=== PATIENT | female | born 1950 | race Caucasian/White ===

== ENCOUNTER 2018-03-30 12:11 | Outpatient (CLI) | payer OTHER ==
[~2018-03-30 12:11] MED LIST: SUCCINYLCHOLINE CHLORIDE 200 MG/10 ML VIAL ONE
[2018-03-30] MEDS ORDERED: PROPOFOL 200 MG/20 ML VIAL ONE (12:44)
[2018-03-30] MEDS ORDERED: PROPOFOL/EMULSION 500 MG/50 ML BOTTLE IV ONE (12:45)
[2018-03-30] MEDS ORDERED: NS 500 ML IV PRN (15:52)
[2018-03-30] MEDS ORDERED: fentaNYL 100 MCG/2 ML INJ IVP PRN (15:52)
[2018-03-30] MEDS ORDERED: NALOXONE HCL 0.4 MG/ML INJ IVP PRN (15:52)
[2018-03-30] MEDS ORDERED: PROMETHAZINE HCL 25 MG/ML INJ IVP PRN (15:52)
[2018-03-30] MEDS ORDERED: DIAZEPAM 5 MG/ML 1 ML SYR IVP PRN (15:52)
[2018-03-30] MEDS ORDERED: DEXAMETHASONE 4 MG/ML VIAL IVP PRN (15:52)
[2018-03-30] MEDS ORDERED: ONDANSETRON 4 MG/2 ML VIAL IVP PRN (15:52)
--- NOTE | 2018-03-30 15:52 | PDANEPAE ---
ANE Past Medical History - Cardiovascular History Hx Hypertension: No Hx Arrhythmias: No Hx Chest Pain: No Hx Coronary Artery / Peripheral Vascular Disease: No Hx CHF / Valvular Disease: No Hx Palpitations: No - Pulmonary History Hx COPD: No Hx Asthma/Reactive Airway Disease: No Hx Recent Upper Respiratory Infection: No Hx Oxygen in Use at Home: No Hx Sleep Apnea: No Sleep Apnea Screening Result - Last Documented: Negative - Neurologic History Hx Cerebrovascular Accident: No Hx Seizures: No Hx Dementia: No - Endocrine History Hx Diabetes: No Endocrine History Comment: HYPOTHYROID - Renal History Hx Renal Disorders: Yes Renal History Comment: ACUTE KIDNEY FAILURE r/t NSAIDS - Liver History Hx Hepatic Disorders: No - Neurological & Psychiatric Hx Hx Neurological and Psychiatric Disorders: No - Cancer History Hx Cancer: Yes Cancer History Comment: SKIN CA. MOTHER BREAST CA. FATHER PROSTATE - Congenital Disorder History Hx Congenital Disorders: No - GI History Hx Gastrointestinal Disorders: Yes Gastrointestinal History Comment: MIRALAX FOR COLON. MOD HIATAL HERNIA - Other Health History Other Health History: pulmonary embolism R lung post op 2013. Auto Immune disease mostly joints/tendons. - Chronic Pain History Chronic Pain: Yes (Neck and T-spine) - Surgical History Prior Surgeries: TOTAL HYSTERECTOMY. PARTIAL COLECTOMY. L KNEE. IT BAND. ORIF L ANKLE. tendon transplant L elbow. Back surgery lumbar fusion 2013 ( post op pulm embolism R lung) ANE Review of Systems Review of Systems: - Exercise capacity METS (RN): 6 METS ANE Patient History - Allergies Allergies/Adverse Reactions: Iodinated Contrast- Oral and IV Dye [Iodinated Contrast Media - IV Dye] Allergy (Severe, Verified 03/30/18 13:28) Dyspnea enoxaparin sodium [From Lovenox] Allergy (Intermediate, Verified 03/30/18 13:28) rash/redness codeine Allergy (Mild, Verified 07/24/14 15:54) Vomiting - Home Medications Home medications: home medication list seen and reviewed Home Medications: Calcium Carbonate [CALTRATE 600] 1,200 mg PO DAILY 05/29/14 [Last Taken 03/29/18 ] Cholecalciferol Vit D3 [Vitamin D3 (*)] 5,000 units PO DAILY 05/29/14 [Last Taken 03/29/18] Levothyroxine [Synthroid 25 mcg (*)] 37.5 mcg PO DAILY06 05/29/14 [Last Taken 11 /15/18] Omeprazole 40 mg PO BID 05/29/14 [Last Taken 03/30/18] Polyethylene Glycol 3350 [Miralax 17 gm (*)] 17 gm PO BID 05/29/14 [Last Taken 03/29/18] predniSONE 5 mg PO DAILY 05/29/14 [Last Taken 03/30/18] Ranitidine HCl [Zantac 75] 75 mg PO BID PRN 07/22/14 [Last Taken 03/29/18] Estradiol Transdermal Patch 0.025 mg SC 03/30/18 [Last Taken 03/30/18 13:32] - NPO status NPO Status: no food or drink >8 hours - Anes Hx Anes Hx: no prior problems - Smoking Hx Smoking Status: Never smoked - Family Anes Hx Family Hx Anesthesia Complications: NEG ANE Labs/Vital Signs - Vital Signs Blood Pressure: 120/75 Heart Rate: 62 Respiratory Rate: 16 O2 Sat (%): 96 Height: 160.02 cm Weight: 55.338 kg ANE Physical Exam - Airway Neck exam: FROM Mallampati Score: Class 2 Mouth exam: normal dental/mouth exam - Pulmonary Pulmonary: no respiratory distress, no rales or rhonchi, clear to auscultation - Cardiovascular Cardiovascular: regular rate and rhythym, no murmur, rub, or gallop - ASA Status ASA Status: II ANE Anesthesia Plan Anesthesia Plan: GA w LMA
--- NOTE | 2018-03-30 17:24 | POSTANESTH ---
Post Anesthetic Evaluation Cardiovascular Status: Normal, Stable, Similar to Pre-Op Cond Respiratory Status: Normal, Stable, Similar to Pre-op Cond. Level of Consciousness/Mental Status: Can Participate in Eval, Alert and Oriented Pain Control: Adequate, Prn Tx Ordered Nausea/Vomiting Control: Adequate, Prn Tx Ordered Complications Possibly Related to Anesthesia: None Noted
[2018-03-30 17:48] VITALS: BP 124/81
== END 2018-03-30 18:00 | disposition home or self-care (01) ==
LOC: FIMAGING 12:11
DX: M51.34 Other intervertebral disc degeneration, thoracic region (principal); M50.30 Other cervical disc degeneration, unspecified cervical region
CPT/HCPCS: 72141; 72146; J2704; J0330